=== PATIENT | male | born 1955 | race Caucasian/White ===

== ENCOUNTER → 2021-03-13 | Outpatient (CLI) | payer MEDICARE ==
--- NOTE | 2021-03-13 12:54 | Diagnostic Imaging Report ---
EXAMINATION: CT abdomen and pelvis without contrast. TECHNIQUE: Multiple contiguous axial images were obtained through the abdomen and pelvis without the use of intravenous contrast. All CT scans use one or more of the following dose optimizing techniques: automated exposure control, MA and/or KvP adjustment based on patient size and exam type or iterative reconstruction. HISTORY: PROSTATE CANCER COMPARISON: None available. FINDINGS: Lung bases: The lung bases are clear. Solid organs: There is a left hepatic hypodense lesion which suggests a hepatic cyst. The liver is otherwise unremarkable. The gallbladder is normal. There is no biliary ductal dilation. Pancreas is normal. Spleen is normal. Adrenal glands are normal. Bilateral renal cysts are present which require no follow-up. No visualized renal calculus or hydronephrosis. Bowel: The stomach and small bowel are normal without obstruction. The colon and appendix are normal. Peritoneum: There is no intraperitoneal free fluid or free air. No suspicious lymphadenopathy. Vasculature: Calcification of the aorta without aneurysm. Musculoskeletal: Multilevel degenerative changes of the spine. There is a sclerotic focus within the S1 vertebral body. No acute compression fracture. Pelvis: The prostate gland is normal. The urinary bladder is normal. IMPRESSION: 1. Sclerotic focus within the S1 vertebral body. Recommend correlation with nuclear medicine bone scan. 2. No other findings of metastatic disease. Dictated by: Dictated on workstation # [id number]
--- NOTE | 2021-03-13 16:19 | Diagnostic Imaging Report ---
INDICATION: Prostate cancer. Chronic whole-body pain. TECHNIQUE: The patient was administered 25.5 mCi technetium 99m MDP intravenously. Anterior and posterior whole-body planar images are obtained. CORRELATION STUDY: None. FINDINGS: There is very slight asymmetric nodular uptake along the lateral aspect of the lower left thorax. Not definitively superimposed over rib and may be artifactual. Definitive abnormal rib uptake not present. The spine demonstrates normal uptake at the left L5 level, likely degenerative. Mild degenerative-type uptake about the bilateral knees as well as shoulders. Physiologic uptake by the kidneys with excretion to the urinary bladder. IMPRESSION: No abnormal radiotracer accumulation to suggest osseous metastasis. Dictated by: Dictated on workstation # [id number]
== END ==
LOC: CARD 12:00
PROVIDERS: ATTEND Urology
DX: C61 Malignant neoplasm of prostate (principal)
CPT/HCPCS: 74176; 78306; A9503

== ENCOUNTER 2021-03-30 10:04 | Outpatient (RCR) | payer MEDICARE ==
[2021-04-30] MEDS ORDERED: AMLO-250 PO (12:00)
[2021-04-30] MEDS ORDERED: LOSA25TA41 PO (12:00)
[2021-04-30] MEDS ORDERED: TMSL.4C PO (12:00)
[2021-04-30] MEDS ORDERED: MELO15TA39 PO (12:00)
[2021-04-30] MEDS ORDERED: ROPI0.253 PO (12:00)
[2021-04-30] MEDS ORDERED: ATOR40TA70 PO (12:00)
[2021-05-06] MEDS ORDERED: PHEN-640 PO (09:43)
[2021-05-06] MEDS ORDERED: CIPR-225 PO (09:43)
== END 2021-06-28 | disposition home or self-care (01) ==
LOC: ONC 10:04
PROVIDERS: ATTEND Radiology Radiation Oncology
DX: C61 Malignant neoplasm of prostate (principal); J44.9 Chronic obstructive pulmonary disease, unspecified; I10 Essential (primary) hypertension; E78.5 Hyperlipidemia, unspecified; E78.00 Pure hypercholesterolemia, unspecified; Z80.42 Family history of malignant neoplasm of prostate; Z72.0 Tobacco use
CPT/HCPCS: 76873; G0463; 99205

== ENCOUNTER 2021-04-30 05:40 | Outpatient (CLI) | payer MEDICARE ==
[~2021-04-30] VITALS: Ht 160 cm; Wt 73.2 kg
[2021-04-30] MEDS ORDERED: MELO15TA39 PO (12:00)
[2021-04-30] MEDS ORDERED: ROPI0.253 PO (12:00)
[2021-04-30] MEDS ORDERED: AMLO-250 PO (12:00)
[2021-04-30] MEDS ORDERED: ATOR40TA70 PO (12:00)
[2021-04-30] MEDS ORDERED: TMSL.4C PO (12:00)
[2021-04-30] MEDS ORDERED: LOSA25TA41 PO (12:00)
== END 2021-04-30 12:25 | disposition home or self-care (01) ==
LOC: PREOP 05:40
PROVIDERS: ATTEND Urology
DX: Z01.818 Encounter for other preprocedural examination (principal)

== ENCOUNTER 2021-05-06 05:55 | Day surgery (SDC) | payer MEDICARE ==
[~2021-05-06] VITALS: Ht 160 cm; Wt 73.2 kg
[2021-05-06] VITALS (10 sets, daily range): BP systolic 118–160; BP diastolic 72–99
[~2021-05-06 05:55] MED LIST: AMLO-250 PO; ATOR40TA70 PO; LOSA25TA41 PO; MELO15TA39 PO; ROPI0.253 PO; TMSL.4C PO
[2021-05-06] MEDS ORDERED: BACITRACIN OINTMENT 28 GM TUBE ONE (07:04)
[2021-05-06] MEDS ORDERED: fentaNYL INJ 100 MCG/2 ML AMP ONE (07:04)
[2021-05-06] MEDS: LACTATED RINGERS 1,000 ML IV PRN ×2 (07:04→09:22)
[2021-05-06] MEDS ORDERED: LIDOCAINE PF 2% 5 ML (XYLOCAINE) VIAL ONE (07:04)
[2021-05-06] MEDS ORDERED: MIDAZOLAM 2 MG/2 ML (VERSED) VIAL ONE (07:04)
[2021-05-06] MEDS ORDERED: proPOfol 200 MG/20 ML (DIPRIVAN) VIAL IV ONE (07:04)
--- NOTE | 2021-05-06 07:31 | Progress Note-Pre Operative ---
Pre-Operative Progress Note H&P Reviewed The H&P was reviewed, patient examined and no changes noted. Date Seen by Provider: May 06, 2021 Time Seen by Provider: 07:30 Date H&P Reviewed: May 06, 2021 Time H&P Reviewed: 07:30 Pre-Operative Diagnosis: KARYNA CHOU MD May 06, 2021 07:31
--- NOTE | 2021-05-06 07:36 | Progress Note-Post Operative ---
Post-Operative Progess Note Surgeon (s)/Bottom Hoop Driver (s) Surgeon ERMA HUERTA MD AND KARYNA JARAMILLO MD Bottom Hoop Driver: NONE Pre-Operative Diagnosis CA P Post-Operative Diagnosis SAME Procedure & Operative Findings Date of Procedure 05/06/21 Procedure Performed/Findings BRACHYTHERAPY, SPACE OAR, AND CYSTOGRAM Anesthesia Type GENERAL Estimated Blood Loss Estimated blood loss (mL): NEGLIGIBLE Specimens/Packing Specimens Removed NONE Packing: NONE KARYNA JARAMILLO MD May 06, 2021 07:36
--- NOTE | 2021-05-06 07:38 | Discharge Inst-Urology ---
Discharge Inst-Urology Reconcile Patient Problems Problems Reviewed?: Yes Final Diagnosis CAP Patient Instructions/Follow Up Plan/Assessment/Instructions Discharge with wilson and leg bag day time and large bag night time with instructions Come to office tuesday 9am to [facility] Wilson Please make appointment to been seen in office by me in 2 weeks. Rest till then Increase oral fluids for 48 hours and then as needed. Keep bowels soft and moving Showers, no bath Diet as tolerated. If questions or concerns contact your physician Or seek help at emergency department. KARYNA JARAMILLO MD May 06, 2021 07:38
[2021-05-06] MEDS ORDERED: ONDANSETRON 4 MG/2 ML (SDV) Z0FRAN ONE (08:27)
[2021-05-06] MEDS ORDERED: GLYCOPYRROLATE 0.2 MG/ML (ROBINUL) 2 ML VIAL ONE (08:27)
[2021-05-06] MEDS ORDERED: SEVOFLURANE (ULTANE) 15 ML INHAL SOLN ONE (09:30)
[2021-05-06] MEDS ORDERED: PHEN-640 PO (09:43)
[2021-05-06] MEDS ORDERED: CIPR-225 PO (09:43)
--- NOTE | 2021-05-06 10:35 | Anesthesia-General Post-Op ---
General Patient Condition Mental Status/LOC: Same as Preop Cardiovascular: Satisfactory Nausea/Vomiting: Absent Respiratory: Satisfactory Pain: Controlled Complications: Absent Post Op Complications Complications None Follow Up Care/Instructions Patient Instructions None needed. Anesthesia/Patient Condition Patient Condition Patient is doing well, no complaints, stable vital signs, no apparent adverse anesthesia problems. No complications reported per nursing. CARROLL FAUSTIN CRNA May 06, 2021 10:35
[2021-05-06] MEDS ORDERED: PHENAZOPYRIDINE 100 MG (PYRIDIUM) TABLET PO ONE (11:30)
--- NOTE | 2021-05-06 15:20 | Diagnostic Imaging Report ---
INDICATION: Prostate cancer. IMPRESSION: 9.2 seconds of fluoroscopy and a single digital image was used in Surgery by Dr. Pabon during placement of brachytherapy seeds in the prostate. Dictated by: Dictated on workstation # [id number]
== END 2021-05-06 11:40 ==
LOC: SDC 05:55
PROVIDERS: ATTEND Urology
DX: C61 Malignant neoplasm of prostate (principal)
CPT/HCPCS: 55874; 55876; 76000; 76965; 77290; 77318; 77332; 77370; 77470; 77778; 87081; C1715 ×2; C1889; C2643

== ENCOUNTER 2021-08-04 10:12 | Outpatient (RCR) | payer MEDICARE ==
[~2021-08-04 10:12] MED LIST changes: +CIPR-225 PO; +PHEN-640 PO
== END 2021-10-02 | disposition home or self-care (01) ==
LOC: ONC 10:12
PROVIDERS: ATTEND Radiology Radiation Oncology
DX: Z51.0 Encounter for antineoplastic radiation therapy (principal); C61 Malignant neoplasm of prostate; J44.9 Chronic obstructive pulmonary disease, unspecified; I10 Essential (primary) hypertension; E78.5 Hyperlipidemia, unspecified; E78.00 Pure hypercholesterolemia, unspecified; Z80.42 Family history of malignant neoplasm of prostate; Z72.0 Tobacco use
CPT/HCPCS: 77295

== ENCOUNTER 2021-11-12 09:58 | Outpatient (RCR) | payer MEDICARE | END 2021-11-30 | disposition home or self-care (01) | LOC: ONC 09:58 | PROVIDERS: ATTEND Radiology Radiation Oncology | DX: C61 Malignant neoplasm of prostate (principal) | CPT/HCPCS: 84153; G0463; 36415; 99213 ==